=== PATIENT | female | born 1980 | race Caucasian/White ===

== ENCOUNTER → 2019-08-29 17:39 | Outpatient (CLI) | payer SELFPAY ==
--- NOTE | 2019-08-29 16:50 | EMB_PTH ---
PATIENT: LENNY SEVILLA LOC: [facility] U#:[id number] AGE/SX: 45/F ROOM: RE08/29/[address]: Dr. Dilan Grissom MD : 1980 BED: DIS: SPEC #: [id number] RECD: 08/29/19 17:09 STATUS: JUNG CAN #: [id number] SADE: 08/29/19 16:[address]: Dilan Grissom DEPT: SURGICAL PATHOLOGY RECD BY: Anton Eduardo Tissues: Endometrium, NOS Procedures: Surgery Specimen Level IV HEADER OPERATION: Endometrial biopsy PRE-OP DIAGNOSIS: N93.9; N92.1 TISSUE SUBMITTED: Endometrium MICROSCOPIC DIAGNOSIS Endometrial biopsy: Disordered proliferative endometrium to simple endometrial hyperplasia without atypia. SJ:howie 08/31/19 COMMENT Case has been reviewed in consultation with Dr. Gale who concurs with the above diagnosis. IDC:AM MICROSCOPIC DESCRIPTION Slides are reviewed. GROSS DESCRIPTION Received in fixative is one container labeled with the patient's name and designated endometrial biopsy. The specimen consists of multiple irregular and elongated fragments of red-spivey soft tissue that in aggregate measure 2.5 x 2 x 0.2 cm. The specimen is totally submitted in one cassette. / AM:howie 08/30/19 TC:5 CPT: 15092
[2019-08-31 20:53] LABS: HPV Reflexed? NOT INDICATED
== END ==
PROVIDERS: Referring Provider Obstetrics & Gynecology; Visit Provider Obstetrics & Gynecology
DX: Z12.4 Encounter for screening for malignant neoplasm of cervix (principal); N93.9 Abnormal uterine and vaginal bleeding, unspecified; N92.1 Excessive and frequent menstruation with irregular cycle
CPT/HCPCS: 88175; 88305; G0145

== ENCOUNTER 2019-10-06 05:14 | Day surgery (SDC) | payer SELFPAY ==
[2019-09-30 08:11] VITALS: BP 122/83; PULSE 70; RESP 17; TEMP 36.8; O2SAT 99; BMI 42.8
[2019-09-30 10:46] LABS: Hematocrit 32.5 % (37-47); Hemoglobin 10.4 g/dL (12.0-15.0); Mean Corpuscular Hgb 28.3 pg (27.0-32.0); Mean Corpuscular Volume 88.6 fL (81-99); Mean Platelet Vol. 10.1 fl (6.2-12.0); Platelet Count 266 K/mm3 (150-450); RBC Distribution Width SD 41.4 fl (35.1-43.9); Red Blood Count 3.67 M/mm3 (4.2-5.4); White Blood Count 7.2 K/mm3 (4.4-11.0)
[2019-09-30 11:13] LABS: Creatinine, Serum 0.74 mg/dL (0.55-1.02); EST Glomerular Filtration Rate 92 mL/min (>60); Est Glom Filt Rate - Afr Amer 111 mL/min (>60); Estimated Creatinine Clearance 79.13 ml/min
[2019-09-30 11:14] LABS: International Normalized Ratio 1.1; Prothrombin Time (Protime)PT. 13.8 SECONDS (11.7-14.9)
[2019-09-30 11:15] LABS: Partial Thromboplast Time 28.5 Seconds (24.1-36.2)
--- NOTE | 2019-10-05 16:58 | PCM.HP.BLA ---
History and Physical Date of Admission: 10/06/19 Surgical History and Physical Cristel Correa, a 39 year old female 0 0 0 0 0, presents for RAVH/BS on October 06, 2019 at 7:30. -- Simple EM Hyperplasia, Dysmenorrhea, Menorrhagia -- Cristel Giles is here w her w c/o heavy, irregular painful periods. Menses can be 5-10 w apart. Many times she passes clots, has low back pain. LMP 1-1-20. States had a D in 2005 which didn't help much. Was seen at ER for severe lower back pain and heavy bleeding. Irregular menses which began years ago. Cristel claims it started gradually and has been present greater than 10 years. It occurs intermittently. It is located in the vagina. Cristel characterizes the quality Bleeding. Severity is moderate and worsening; Associated signs and symptoms are dysmenorrhea, heavy menses. Additional comments are: has had irregular menses her whole life; 18 years and no children; current menses 13 days. MEDICATIONS HISTORY: ALLERGIES: No Known Drug Allergies Infections - Chicken pox, Measles and Whooping Cough Illnesses - headaches Accidents - no injuries of consequence Hospitalizations - outpatient procedures Review of Systems: GENERAL - Denies fever, or chills SKIN - Denies skin changes EYES - Denies visual changes EARS - Denies difficulty hearing NOSE - Denies nasal congestion or bleeding MOUTH - Denies sore throat or difficulty swallowing NECK - Denies pain or swelling RESPIRATORY - Denies shortness of breath or wheezing CARDIOVASCULAR - Denies palpitations or chest pain GASTROINTESTINAL - Denies nausea, vomiting, diarrhea, constipation GENITOURINARY - Denies dysuria, frequency of urination, incontinence of urine MUSCULOSKELETAL - Denies joint or muscle pain NEUROLOGICAL - Denies localized numbness or weakness PSYCHIATRIC - Denies depression or anxiety ENDOCRINE - Denies heat or cold intolerance, weight loss or gain HEMATO-IMMUNOLOGIC - Denies excesive bleeding with cuts SOCIAL HISTORY: Alcohol Use - drinks occasionally Smoking - Never Diet - balanced Diet and caffeine > 2 drinks per day Lifestyle - active lifestyle and Exercise - active Seat Belt Use - occasional Employer - homemaker Illicit Drug Use - denies use of street drugs Sexual Activity - Place of - [place] Spouse-Sig Other Name - Luis Manuel Spouse-Sig Other Occupation - [employer] Spouse-Sig Other Phone No - none. does have answering machine FAMILY HISTORY: MENSTRUAL HISTORY: LMP Known?- Irregular cyclesAmount/Duration - excess amount, Regularity - Irregular and heavy, Frequency - variable days, LMP - 08/17/19, Age Onset Menarche - 11 PAST PREGNANCIES: Total Pregnancies - 0; Full Term Pregnancies - 0; Premature - 0; Abortions, Induced - 0; Abortions, Spontaneous - 0; Ectopics - 0; Multiple Births - 0; Living Children - 0 SURGICAL HISTORY: 1. D and C PHYSICAL EXAM BP- 118/74 Sitting, Right arm, regular cuff Weight- 234.39523 lbs Height- 63.25 inch BMI:41.21 CONSTITUTIONAL - NAD, well nourished, and well developed SKIN - No rash, lesions, or ulcers HEENT - Normocephalic, PERRLA, EOMI NECK - No nodes, no nuchal rigidity and thyroid normal size and texture LYMPH NODES - Palpation of lymph nodes in neck and groins within normal limits LUNGS - CTA x2 without wheezes, crackles or rales CARDIAC - Regular rate and rhythm without rubs, murmurs, or gallops ABDOMEN - Without hepatosplenomegaly, distention, masses, rebound, or guarding; normal bowel sounds; no hernias EXTREMITIES - No edema or calf tenderness NEUROLOGICAL - Cranial nerves II-XII grossly intact PSYCHIATRIC - A and O to time, place, person, mood and affect DETAILED PELVIC EXAM External Genital Vagina - non-tender without lesions Urethra/Urethral Meatus - non-tender Bladder - non-tender Vagina - vaginal quiros are pink and moist without loss of rugae and no evidence of atropy Cervix - without cervical motion tenderness and has normal size and features without evident lesions Uterus - multiparous size 6 cm & wt 75-125 g Adnexa - clear without masses or tenderness ASSESSMENT/PLAN: 1. Dysmenorrhea, Excessive And Frequent Menstruation With Irregular Cycle and Simple Endometial Hyperplasia Discussed options for treatment and patient desires to proceed with hysterectomy. Discussed RBAs of RAVH/BS and all questions answered. Declines continuing cyclic provera withdrawal.
[2019-10-06] VITALS (15 sets, daily range): BP systolic 129–158; BP diastolic 60–98; PULSE 67–88; RESP 16–18; TEMP 36.4–37.3; O2SAT 92–100; BMI 42.8
[2019-10-06 05:51] LABS: Internal QC Validated? YES +Cl - CLEAR BKGD; Pregnancy, Urine Negative Negative
[2019-10-06] MEDS: Lactated Ringers 1,000 ML 100 ML IV ×2 (06:05)
--- NOTE | 2019-10-06 07:30 | HYST_PTH ---
PATIENT: LENNY SEVILLA LOC: [facility] – [place] U#:[id number] AGE/SX: 39/F ROOM: RE10/06/[address]: Dr. Dilan Grissom MD : 1980 BED: DIS: 10/07/2019 SPEC #: [id number] RECD: 10/06/19 10:23 STATUS: JUNG CAN #: [id number] SADE: 10/06/19 07:[address]: Dilan Grissom DEPT: SURGICAL PATHOLOGY RECD BY: Stevie Lyn ENTERED: 10/06/19 10:42 SP TYPE: HYSTERECT OTHR DR: Dr. Dilan Ledesma MD Tissues: Uterus, NOS Procedures: Surgery Specimen Level V HEADER OPERATION: Robotic assisted vaginal hysterectomy, bilateral salpingectomy PRE-OP DIAGNOSIS: Simple endometrial hyperplasia, dysmenorrhea, menorrhagia TISSUE SUBMITTED: Uterus, cervix, bilateral fallopian tubes MICROSCOPIC DIAGNOSIS Uterus, cervix, bilateral fallopian tubes, vaginal hysterectomy and bilateral salpingectomy: Cervix - chronic inflammation. Endometrium - focal simple endometrial hyperplasia without atypia. Myometrium - focal superficial adenomyosis. Bilateral fallopian tubes - no pathologic diagnosis. SJ:howie 10/07/19 COMMENT Please make reference to previous specimen ([id number]), endometrial biopsy with diagnosis of disordered proliferative endometrium to simple endometrial hyperplasia without atypia. MICROSCOPIC DESCRIPTION Slides are reviewed. GROSS DESCRIPTION Received in fixative is one container labeled with the patient's name and designated uterus, cervix, bilateral fallopian tubes. The specimen consists of a hysterectomy specimen consisting of uterus with cervix and attached bilateral fallopian tubes. The uterus with cervix weighs 180 gm and measures 12.5 x 7 x 6 cm. The serosal surface is spivey, glistening. The ectocervical mucosa is unremarkable. The external os is oval and patulous in contour. The endocervical canal measures 3.5 cm in length and the endocervical mucosa is spivey, glistening and unremarkable. The triangular endometrial cavity measures 6 cm in length and up to 3.5 cm in width. The endometrium is congested and hemorrhagic without any mass lesions and measures 0.1 to 0.2 cm in thickness. Sections of the myometrial wall do not reveal any mass lesion and it measures up to 2.5 cm in thickness. The right fallopian tube measures 6 cm in length and up to 0.7 cm in diameter. The fimbrial end is identified. Sections reveal unremarkable cut surfaces. The left fallopian tube is similar appearance to right and measures 7 cm in length and 0.6 cm in diameter. Meat Carrier sections are submitted in 12 cassettes as follows: 1 - anterior cervix, 2 - posterior cervix, 3-6 - anterior uterine wall, 7-10 - posterior uterine wall, entire endometrium (almost the entire endometrium is submitted), 11 - right fallopian tube, 12 - left fallopian tube. / ANSHUL:howie 10/06/19 TC:5 CPT: 77832
--- NOTE | 2019-10-06 07:33 | PCM.OPRPT ---
Report of Operation Date of Procedure: 10/06/19 Pre-Operative Diagnosis: Simple EM Hyperplasia, Dysmenorrhea, Menorrhagia Post-Operative Diagnosis: Simple EM Hyperplasia, Dysmenorrhea, Menorrhagia Surgery/Procedure Performed:: Robotic Assisted Vaginal Hysterectomy and Bilateral Salpingectomy Description of Surgical Findings:: 8 cm uterus with normal-appearing fallopian tubes and ovaries. training program assistant: José Hinojosa Type of Anesthesia:: General - Endotracheal Anesthesiologist: Lakisha Choe Specimen's removed: Uterus and bilateral fallopian tubes Drains: Fox to straight drain Estimated Blood Loss (mL): Minimal Fluids Replaced: Crystalloid Description of Procedure: Surgeon: Dilan Grissom MD, FACOG Indication: This is a 39 year old patient who has been having problems with menorrhagia, dysmenorrhea, and simple hyperplasia. Conservative measures have not been helpful. The patient has been counseled regarding the risks, benefits and alternatives of this procedure including the possibility of bleeding, infection, and injury to surrounding structures such as bowel bladder and all questions were answered. She understands that if BSO is needed that she will need to be on HRT for an indefinite period of time. Procedure: Pt taken to the operating room where, after induction of general anesthesia, the patient was prepped and draped in the usual sterile fashion and placed on a non-slip Huggy-u-vac device. Trendelenburg test was satisfactory. Bladder was drained of urine with a Fox catheter which was left in place. Anterior cervix grasped and cervix was dilated to about 3-4 mm. Uterus sounded to 9 cms. 0-Vicryl suture was placed at the 3:00 and 9:00 position of the cervix. A medium Advincul[employer] Printing Machine Operator Uterine Manipulator was then placed in the uterus and attention was turned to the laparoscopic portion of the procedure. Ropivocaine 0.5% was injected approximately 2-3 cm superior to the umbilicus and an 8 mm robotic camera port was introduced directly with intraperitoneal placement confirmed with CO2 insufflation. 8 mm robotic side ports were introduced under direct visualization approximately 11 cm lateral and 2 cm inferior to the umbilical port. A 5 mm left upper quadrant port was introduced and airseal insufflation with CO2 was started. The above findings were noted. Robot was docked without difficulty and attention turned to the robotic portion of the procedure. Approximately 30 cc of Ropivicaine was used. Bilateral mesosalpinx were ligated with 45 dangelo bipolar coagulation to the level of the round ligament. The posterior aspect of the cervix was identified and then opened for about 1 cm using 25 watt monopolar cautery identifying the uterine manipulating device which had been placed vaginally. Bladder flap was opened and divided to the level of the round ligaments using monopolar cautery. Progressive bites were then ligated on each side of the cervix with 35 dangelo bipolar cautery to the uterine arteries. The anterior vaginal mucosa was entered and cervix circumscribed with monopolar cautery. Uterus and attached tubes were removed through the vagina. Vaginal cuff was closed first with 0-Vicryl Wilson stitches placed at each angle followed by closure of the mid-cuff with 0-Monocryl V-lock suture in two layers. Pelvis was copiously irrigated with saline and the right ureter was noted to peristalse. Robot was undocked and trocars were removed with as much gas as possible. Incisions were closed with 4-0 Monocryl subcuticular sutures and incisions covered with steri-strips. The patient tolerated the procedure well and was taken to the recovery room in satisfactory condition. Sponge, instruments and needle counts were all correct. There were no apparent complications of the surgery. Cefotan 2 gms IV was given prior to the procedure. Estimated Blood Loss: Minimal Specimen to Pathology: Uterus and tubes Grafts/Implants Used: None - Complications None - Admit VTE Documentation VTE Present on Admission: Yes VTE Mechan Device Prophylaxis: SCD's VTE Pharm Prophylaxis ordered?: Yes
--- NOTE | 2019-10-06 07:36 | DCINST_ITS ---
Discharge Diet: No Restrictions Discharge Activity: Return to Normal Activity, May Not Drive - while taking narcotic pain medications., May Shower May resume sexual activity in: 6-8 weeks Call your doctor if your incision/area has: Continuous Slow Oozing, Sudden Increased Bleeding, Increased Pain/ Swelling, Increased Redness, Foul Smelling Discharge Call your doctor if you observe: Fever of 101 or Higher, Inability to urinate, Inability to have a bowel movement, Using more than one pad per hour Allergies/Adverse Reactions: Allergies No Known Allergies Allergy (Verified 10/06/19 05:47) Medications to take at Discharge Ibuprofen 200 mg PO PRN PRN 09/30/19 Docusate Sodium [Colace] 100 mg PO BID PRN PRN #60 cap 10/06/19 Oxycodone [Oxyir] 5 mg PO Q6H PRN PRN 7 Days #14 tablet 10/06/19 The following prescriptions were given: Docusate Sodium [Colace] 100 mg PO BID PRN PRN #60 cap PRN Reason: Constipation Transmission Status[facility] Oxycodone [Oxyir] 5 mg PO Q6H PRN PRN 7 Days #14 tablet PRN Reason: Pain Score 6-10/10 Transmission Status: [facility] Primary Care Physician: Dilan Ledesma MD [Primary Care Provider] - Test Results: Test results from this visit will be discussed in further detail at your follow- up appointment, if applicable. Please Follow Up With: Dilan Grissom MD When: 2 to 3 weeks
[2019-10-06] MEDS: Ropivacaine 0.5% 30 ML Vial (09:30)
[2019-10-06] MEDS: oxyCODONE 5 MG Tablet PO ×2 (12:19→18:53)
[2019-10-06] MEDS: HYDROmorphone 0.5 MG/0.5 ML SYRINGE IV (13:46)
[2019-10-06] MEDS: Ondansetron 4 MG/2 ML Vial IV (13:46)
[2019-10-06] MEDS: Ketorolac 30 MG/ML Syringe IV ×2 (15:59→21:07)
[2019-10-06] MEDS: Enoxaparin 30 MG/0.3 ML Syringe SC (18:43)
[2019-10-06] MEDS: 0.9% Saline Lock 10 ML Syringe IV ×2 (19:41→21:07)
[2019-10-07 02:00] VITALS: BP 113/69; PULSE 88; RESP 16; TEMP 36.9; O2SAT 97
[2019-10-07] MEDS: Ketorolac 10 MG Tablet PO ×2 (02:02→05:18)
[2019-10-07 06:19] LABS: Hematocrit 30.4 % (37-47); Hemoglobin 9.7 g/dL (12.0-15.0); Mean Corp Hgb Conc 31.9 g/dL (32-36); Mean Corpuscular Hgb 28.4 pg (27.0-32.0); Mean Corpuscular Volume 88.9 fL (81-99); Mean Platelet Vol. 10.3 fl (6.2-12.0); Platelet Count 253 K/mm3 (150-450); RBC Distribution Width CV 13.5 % (11.6-14.6); RBC Distribution Width SD 43.5 fl (35.1-43.9); Red Blood Count 3.42 M/mm3 (4.2-5.4); White Blood Count 12.9 K/mm3 (4.4-11.0)
[2019-10-07 06:47] LABS: Creatinine, Serum 0.91 mg/dL (0.55-1.02); EST Glomerular Filtration Rate 72 mL/min (>60); Est Glom Filt Rate - Afr Amer 87 mL/min (>60); Estimated Creatinine Clearance 64.35 ml/min
[2019-10-07] MEDS: oxyCODONE 5 MG Tablet PO (06:50)
[2019-10-07 08:17] VITALS: BP 144/81; PULSE 69; RESP 16; TEMP 37; O2SAT 98
--- NOTE | 2019-10-07 08:52 | PN.OBGYN_ITS ---
Subjective: Patient without complaints. Tolerating liquids well. Minimal pain or vaginal bleeding. Ready to go home today. Able to void on own after Fox was discontinued Objective: Wounds are clean, dry, intact. Good urine output. Hemoglobin and creatinine okay. - Physical Exam Vitals/I&O's: Vital Signs Temp Pulse Resp BP Pulse Ox 98.6 F 69 16 144/81 H 98 10/07/19 08:17 10/07/19 08:17 10/07/19 08:17 10/07/19 08:17 10/07/19 08:17 Oxygen Flow Rate (L/min) 2 Oxygen Delivery Method Room Air Weight: 234 lb 2.095 oz Body Mass Index (BMI) 42.8 Intake and Output for Last 24 Hours 10/05/19 10/06/19 10/07/19 23:59 23:59 23:59 Intake Total 2770 / 3970 1500 / 1500 Output Total 625 / 1375 1250 / 1250 Balance 2145 / 2595 250 / 250 Laboratory Results 10/07/19 06:06: WBC 12.9 H, RBC 3.42 L, Hgb 9.7 L, Hct 30.4 L, MCV 88.9, MCH 28.4, MCHC 31.9 L, RDW Std Deviation 43.5, RDW Coeff of Manuelito 13.5, Plt Count 253, MPV 10.3 10/07/19 06:06: Creatinine 0.91, Estim Creat Clear Calc 64.35, Est GFR (MDRD) Af Amer 87, Est GFR (MDRD) Non-Af 72 Current Medications Acetaminophen (Tylenol) 1,000 mg PO Q8H PRN PRN PRN Reason: Pain Score 1-3/10 or Fever Docusate Sodium (Colace) 100 mg PO BID PRN PRN PRN Reason: CONSTIPATION Hydromorphone HCl (Dilaudid Inj) 0.5 mg IV Q3H PRN PRN PRN Reason: PAIN SCORE 4-10/10 Last Admin: 10/06/19 13:46 Dose: 0.5 mg Documented by: Sodium Chloride () 250 mls @ 15 mls/hr IV .[id number] PRN PRN Reason: Saline Flush Ketorolac Tromethamine (Toradol) 10 mg PO Q6 [place] Stop: 10/11/19 06:01 Last Admin: 10/07/19 05:18 Dose: 10 mg Documented by: Ondansetron HCl (Zofran) 4 mg IV Q4H PRN PRN PRN Reason: NAUSEA Last Admin: 10/06/19 13:46 Dose: 4 mg Documented by: Oxycodone HCl (Oxyir) 5 mg PO Q4H PRN PRN PRN Reason: Pain Score 4-10/10 Last Admin: 10/07/19 06:50 Dose: 5 mg Documented by: Sodium Chloride () 10 - 40 ml IV UD PRN PRN Reason: SALINE FLUSH Last Admin: 10/06/19 21:07 Dose: 10 ml Documented by: Medical Necessity - Tobacco Use Smoking Status: Never smoker Tobacco Use: Non-smoker Assessment/Plan Doing well postoperative day #1 status post robotic assisted vaginal hys terectomy and bilateral salpingectomy. Will discharge to home with routine instructions.
== END 2019-10-07 11:04 | disposition home or self-care (01) ==
LOC: SDC 05:16 → AC 05:17 → MS3 10-07 07:17
PROVIDERS: Anesthesiology; PCP Family Medicine; Referring Provider Obstetrics & Gynecology; Visit Provider Obstetrics & Gynecology
PROC: 0UT90ZZ Resection of Uterus, Open Approach (ICD-10-PCS; CPT 58552; principal; 2019-10-06 07:10)
DX: N85.01 Benign endometrial hyperplasia (principal); N92.0 Excessive and frequent menstruation with regular cycle; N94.6 Dysmenorrhea, unspecified
CPT/HCPCS: 00840; 58552; S2900; 36415; 81025; 82565; 85027; 85610; 85730; 86850; 86900; 86901; 88307; 99251; J7120; A4216; G0463; J2405